=== PATIENT | male | born 1990 | race Caucasian/White ===

== ENCOUNTER 2016-11-07 23:28 | Emergency (ER) | payer BC ==
--- NOTE | 2016-11-07 23:47 | Emergency Department Record ---
History of Present Illness - General Chief Complaint: Fall Injury Stated Complaint: FALL Time Seen by Provider: 11/07/16 23:41 Source: Patient Mode of Arrival: Ambulatory Limitations: No limitations - History of Present Illness Initial Comments: 26 yo male presents to ED with a CC of right ankle and right wrist pain following a trip and fall down a flight of stairs 1 week ago. Patient reports pain with ambulation as well as extension of the wrist. Patient denies other injury on examination. MD Complaint: Fall Onset/Timin -: Week(s) Fall From: Down stairs (#) When Fall Occurred: # Days [employer] Fall Witnessed: No Place Fall Occurred: Home Loss of Consciousness: None Prolonged Down Time?: No Symptoms Prior to Fall: None Location - Extremities: Right: Forearm, Ankle Severity: Moderate Severity scale (1-10): 3 Context: Tripped/slipped Associated Symptoms: Denies - Zay Coma Scale Eye Response: (4) Open spontaneously Motor Response: (6) Obeys commands Verbal Response: (5) Oriented [place] Total: 15 - Related Data Home Medications Medication Instructions Recorded Confirmed Last Taken Hydrocodone/Acetaminophen 1 tab PO Q6H PRN 01/16/16 01/16/16 01/16/16 02:00 [Hydrocodone/Acetaminophen 5mg/325mg] Ondansetron [Zofran Odt] 4 mg PO Q6HR PRN 01/16/16 01/16/16 01/16/16 02:00 Previous Rx's Medication Instructions Recorded Amoxicillin/Potassium Clav 1 tab PO BID #19 tab 01/16/16 [Augmentin 875-125 Tablet] Ibuprofen [Motrin 600Mg] 600 mg PO Q6H #30 tablet 11/08/16 Allergies Allergy/AdvReac Type Severity Reaction Status Date / Time coconut Allergy PT UNSURE Verified 11/07/16 23:35 OF REACTION flaxseed Allergy PT UNSURE Verified 11/07/16 23:35 OF REACTION tree nut Allergy PT UNSURE Verified 01/16/16 03:56 OF REACTION Travel Screening - Travel/Exposure Within Last 30 Days Have you traveled within the last 30 days?: No - Travel/Exposure Within Last Year Have you traveled outside the [place] in the last year?: No - Additonal Travel Details Have you been exposed to anyone with a communicable illness?: No - Travel Symptoms Symptom Screening: None Review of Systems Constitutional: Denies: Chills, Fever, Malaise, Night sweats Eyes: Denies: Eye discharge, Eye pain ENT: Denies: Congestion, Dental pain Respiratory: Denies: Cough, Dyspnea Cardiovascular: Denies: Chest pain, Dyspnea on exertion Endocrine: Denies: Fatigue, Heat or cold intolerance Gastrointestinal: Denies: Abdominal pain, Nausea, Vomiting Genitourinary: Denies: Testicular pain, Testicular mass Musculoskeletal: Reports: Arthralgia. Denies: Back pain, Gout, Joint swelling Skin: Denies: Bruising, Change in color Neurological: Denies: Abnormal gait, Confusion, Headache, Seizure Psychiatric: Denies: Anxiety Hematological/Lymphatic: Denies: Anemia, Blood Clots Past Medical History - SOCIAL HISTORY Smoking Status: Former smoker Alcohol Use: Occassional Drug Use: None - RESPIRATORY Hx Respiratory Disorders: Yes Hx Asthma: Yes Hx Bronchitis: Yes - CARDIOVASCULAR Hx Cardio Disorders: No - NEURO Hx Neuro Disorders: No - GI Hx GI Disorders: No - Hx Genitourinary Disorders: No - ENDOCRINE Hx Endocrine Disorders: No - MUSCULOSKELETAL Hx Musculoskeletal Disorders: No - PSYCH Hx Psych Problems: No - HEMATOLOGY/ONCOLOGY Hx Hematology/Oncology Disorders: No Family Medical History Any Significant Family History?: No Physical Exam - General General Appearance: Alert, Oriented x3, Cooperative, No acute distress Limitations: No limitations - Head Head exam: Atraumatic, Normocephalic, Normal inspection Head exam detail: negative: Abrasion, Contusion, Yanez's sign, General tenderness, Hematoma, Laceration - Eye Eye exam: Normal appearance. negative: Conjunctival injection, Periorbital swelling, Periorbital tenderness, Scleral icterus - ENT Ear exam: negative: Auricular hematoma, Auricular trauma Nasal Exam: negative: Active bleeding, Discharge, Dried blood, Foreign body Mouth exam: negative: Drooling, Laceration, Muffled voice, Tongue elevation - Neck Neck exam: Normal inspection. negative: Meningismus, Tenderness - Respiratory Respiratory exam: Normal lung sounds bilaterally. negative: Rales, Respiratory distress, Rhonchi, Stridor - Cardiovascular Cardiovascular Exam: Regular rate, Normal rhythm, Normal heart sounds Peripheral Pulses: 3+: Radial (R), Dorsalis Pedis (R) - GI/Abdominal GI/Abdominal exam: Soft. negative: Rebound, Rigid, Tenderness - Rectal Rectal exam: Deferred - exam: Deferred - Extremities Extremities exam: Tenderness, Other (Mild TTP to the lateral right ankle, no STS present, strong DPP, achilles intact, no proximal fibula pain. Pain over the distal right wrist, FROM, strong radial pulse on examination). negative: Calf tenderness, Pedal edema - Back Back exam: Denies: CVA tenderness (R), CVA tenderness (L) - Neurological Neurological exam: Alert, Normal gait, Oriented X3 - Psychiatric Psychiatric exam: Normal affect, Normal mood - Skin Skin exam: Normal color. negative: Abrasion Type of lesion: negative: abrasion Course Vital Signs 11/07/16 23:31 Temperature 98.1 F Pulse Rate 73 Respiratory 20 Rate Blood Pressure 134/80 Pulse Ox 97 - Reevaluation(s) Reevaluation #1: 11/07/16 23:58 Right Ankle: Negative for fracture Right Wrist: Negative for fracture Patient was updated on all results and appears stable for discharge with continued symptomatic care at home. Disposition Disposition: Discharge Clinical Impression: Multiple contusions Disposition: Home, Self-Care Condition: (2) Stable Instructions: Contusion in Adults (ED) Additional Instructions: Return to ED if your symptoms worsen or if you have any concerns. Follow-up with your family doctor in 3-5 days as directed. Ibuprofen as needed for pain. Prescriptions: Ibuprofen [Motrin 600Mg] 600 mg PO Q6H #30 tablet Forms: Patient Portal Access Time of Disposition: 00:03 Quality - Quality Measures Quality Measures: N/A - Blood Pressure Screening Blood Pressure Classification: Pre-Hypertensive BP Reading Systolic Measurement: 134 Diastolic Measurement: 80 Screening for High Blood Pressure: < Pre-Hypertensive BP, F/U Documented > [ G8950] Pre-Hypertensive Follow-up Interventions: Referral to alternative/primary care provider.
--- NOTE | 2016-11-09 07:42 | RADIOLOGY REPORT ---
EXAM: RIGHT ANKLE, THREE VIEWS HISTORY: LATERAL PAIN AFTER FALLING DOWN STAIRS A FEW DAYS AGO. TECHNIQUE: Three views of the right ankle were obtained. Comparison: None. Encounter: Initial. FINDINGS: There is normal bone mineralization. No fracture, dislocation, or destructive bone lesion is seen. The ankle mortise joint is symmetric. Mild marginal spurring is noted to involve the tip of the medial malleolus. The articular relations are otherwise unremarkable. No focal soft tissue abnormality. IMPRESSION: NO ACUTE BONE NOR JOINT ABNORMALITY IDENTIFIED. [facility] [id number] [facility]
--- NOTE | 2016-11-09 07:45 | RADIOLOGY REPORT ---
EXAM: RIGHT WRIST COMPLETE HISTORY: LATERAL WRIST PAIN AFTER FALLING DOWN STAIRS A FEW DAYS AGO. TECHNIQUE: Four views of the right wrist were obtained. Comparison: None. Encounter: Initial. FINDINGS: There is normal bone mineralization. No acute fracture, dislocation , nor destructive bone lesion is seen. The articular relations are grossly maintained. The scapholunate joint space is, however, near the upper limits of normal. No focal soft tissue abnormality is seen. IMPRESSION: NO ACUTE FRACTURE NOR DISLOCATION. [facility]: [id number] [facility]
== END 2016-11-08 00:10 | disposition home or self-care (01) ==
LOC: ER 23:28
DX: S60.211A Contusion of right wrist, initial encounter (principal); S90.01XA Contusion of right ankle, initial encounter; W10.9XXA Fall (on) (from) unspecified stairs and steps, initial encounter; Y92.009 Unspecified place in unspecified non-institutional (private) residence as the place of occurrence of the external cause
CPT/HCPCS: 99283

== ENCOUNTER 2017-05-15 16:03 | Emergency (ER) | payer BC ==
[2017-05-15] MEDS ORDERED: 0.9 % SODIUM CHLORIDE 1,000 ML BAG IV ONE (17:27)
[2017-05-15] MEDS ORDERED: KETOROLAC 30 MG/ML VIAL IVP ONE (17:27)
[2017-05-15 17:50] LABS: URINE APPEARANCE CLEAR; URINE BILIRUBIN NEGATIVE (NEGATIVE); URINE BLOOD NEGATIVE (NEGATIVE); URINE COLOR YELLOW; URINE GLUCOSE (UA) NEGATIVE (NEGATIVE); URINE KETONE NEGATIVE (NEGATIVE); URINE LEUKOCYTE ESTERASE NEGATIVE (NEGATIVE); URINE NITRITE NEGATIVE (NEGATIVE); URINE PROTEIN NEGATIVE (NEGATIVE); URINE UROBILINOGEN 0.2 E.U./dL (0.20 - 1.00)
[2017-05-15 17:50] LABS: BASO % 0.2 % (0-6); EOS % 3.5 % (0-6); GRAN % 58.9 % (47-80); HEMATOCRIT 44.8 % (42.0-52.0); HEMOGLOBIN 14.8 gm/dl (14.0-18.0); LYMPH % 30.9 % (16-45); MEAN CORPUSCULAR HEMOGLOBIN 28.7 pg (27-33); MEAN PLATELET VOLUME 9.8 fl (7.4-10.4); MONO % 6.5 % (0-9); PLATELET COUNT 219 K/uL (130-400); RED BLOOD COUNT 5.15 M/uL (4.40-5.70); RED CELL DISTRIBUTION WIDTH 13.7 % (11.5-14.5); WHITE BLOOD COUNT W/O DIFF 8.2 K/uL (4.2-12.2)
[2017-05-15 17:58] LABS: BLOOD UREA NITROGEN 15 mg/dL (6-20); CREATININE 0.8 mg/dL (0.7-1.2); EST GLOMERULAR FILTRATION RATE > 60 mL/min
[2017-05-15 18:01] LABS: GLUCOSE,RANDOM 87 mg/dL (74-109)
--- NOTE | 2017-05-15 18:24 | Emergency Department Record ---
History of Present Illness - General Chief Complaint: Back Pain/Injury Stated Complaint: LOWER BACK/ABDOMINAL PAIN Time Seen by Provider: 05/15/17 17:22 Source: Patient Mode of Arrival: Ambulatory Limitations: No limitations - History of Present Illness Initial Comments: pt has had flank pain and abd pain for 2 days which is getting progressively worse. no n/v/c MD Complaint: Back pain, Other Onset/Timin -: Days(s) Similar Symptoms Previously: No Place: Home Severity scale (1-10): 4 Quality: Sharp Consistency: Constant Context: Unknown Associated Symptoms: Abdominal pain - Related Data Previous Rx's Medication Instructions Recorded Cyclobenzaprine HCl [Flexeril] 10 mg PO TID #14 tablet 05/15/17 Hydrocodone/Acetaminophen [[place] 1 tab PO Q6H PRN #7 tab 05/15/17 5mg/325mg] Ibuprofen [Motrin 600Mg] 600 mg PO Q6H #20 tablet 05/15/17 Allergies Allergy/AdvReac Type Severity Reaction Status Date / Time coconut Allergy PT UNSURE Verified 05/15/17 16:51 OF REACTION flaxseed Allergy PT UNSURE Verified 05/15/17 16:51 OF REACTION tree nut Allergy PT UNSURE Verified 05/15/17 16:51 OF REACTION Travel Screening - Travel/Exposure Within Last 30 Days Have you traveled within the last 30 days?: No - Travel/Exposure Within Last Year Have you traveled outside the [place] in the last year?: No - Additonal Travel Details Have you been exposed to anyone with a communicable illness?: No - Travel Symptoms Symptom Screening: None Review of Systems Reviewed: No additional complaints except as noted below Constitutional: Reports: As per HPI. Denies: Chills, Fever, Malaise, Night sweats, Weakness, Weight change Eyes: Reports: As per HPI. Denies: Eye discharge, Eye pain, Photophobia, Vision change ENT: Reports: As per HPI. Denies: Congestion, Dental pain, Ear pain, Epistaxis , Hearing loss, Throat pain Respiratory: Reports: As per HPI. Denies: Cough, Dyspnea, Hemoptysis, Stridor, Wheezes Cardiovascular: Reports: As per HPI. Denies: Arrhythmia, Chest pain, Dyspnea on exertion, Edema, Murmurs, Orthopnea, Palpitations, Paroxysmal nocturnal dyspnea, Rheumatic Fever, Syncope Endocrine: Reports: As per HPI. Denies: Fatigue, Heat or cold intolerance, Polydipsia, Polyuria Gastrointestinal: Reports: As per HPI. Denies: Abdominal pain, Constipation, Diarrhea, Hematemesis, Hematochezia, Melena, Nausea, Vomiting Genitourinary: Reports: As per HPI. Denies: Dysuria, Frequency, Hematuria, Incontinence, Retention, Testicular pain, Testicular mass, Urgency Musculoskeletal: Reports: As per HPI. Denies: Arthralgia, Back pain, Gout, Joint swelling, Myalgia, Neck pain Skin: Reports: As per HPI. Denies: Bruising, Change in color, Change in hair/ nails, Lesions, Pruritus, Rash Neurological: Reports: As per HPI. Denies: Abnormal gait, Confusion, Headache, Numbness, Paresthesias, Seizure, Tingling, Tremors, Vertigo, Weakness Psychiatric: Reports: As per HPI. Denies: Anxiety, Auditory hallucinations, Depression, Homicidal thoughts, Suicidal thoughts, Visual hallucinations Hematological/Lymphatic: Reports: As per HPI. Denies: Anemia, Blood Clots, Easy bleeding, Easy bruising, Swollen glands Past Medical History - SOCIAL HISTORY Smoking Status: Former smoker Alcohol Use: Rare Drug Use: None - RESPIRATORY Hx Respiratory Disorders: No - CARDIOVASCULAR Hx Cardio Disorders: No - NEURO Hx Neuro Disorders: No - GI Hx GI Disorders: No - Hx Genitourinary Disorders: No - ENDOCRINE Hx Endocrine Disorders: No - MUSCULOSKELETAL Hx Musculoskeletal Disorders: No - PSYCH Hx Psych Problems: No - HEMATOLOGY/ONCOLOGY Hx Hematology/Oncology Disorders: No Family Medical History Any Significant Family History?: No Physical Exam - General General Appearance: Alert, Oriented x3, Cooperative, Mild distress - Head Head exam: Normal inspection - Eye Eye exam: Normal appearance, PERRL, EOMI Pupils: Normal accommodation - ENT ENT exam: Normal exam, Mucous membranes moist, Normal external ear exam, Normal orophraynx Ear exam: Normal external inspection. negative: External canal tenderness Nasal Exam: Normal inspection. negative: Discharge, Sinus tenderness Mouth exam: Normal external inspection, Tongue normal Teeth exam: Normal inspection. negative: Dental caries Throat exam: Normal inspection. negative: Tonsillar erythema, Tonsillar exudate - Neck Neck exam: Normal inspection, Full ROM. negative: Tenderness - Respiratory Respiratory exam: Normal lung sounds bilaterally. negative: Respiratory distress - Cardiovascular Cardiovascular Exam: Regular rate, Normal rhythm, Normal heart sounds - GI/Abdominal GI/Abdominal exam: Soft, Normal bowel sounds, Tenderness (rlq) - Rectal Rectal exam: Deferred - exam: Deferred - Extremities Extremities exam: Normal inspection, Full ROM, Normal capillary refill. negative: Tenderness - Back Back exam: Reports: Normal inspection, Full ROM. Denies: Muscle spasm, Rash noted, Tenderness - Neurological Neurological exam: Alert, CN II-XII intact, Normal gait, Oriented X3 - Psychiatric Psychiatric exam: Normal affect, Normal mood - Skin Skin exam: Dry, Intact, Normal color, Warm Course Vital Signs 05/15/17 16:45 Temperature 98.1 F Pulse Rate 63 Respiratory 20 Rate Blood Pressure 127/75 Pulse Ox 99 - Reevaluation(s) Reevaluation #1: 05/15/17 18:46 ct neg Medical Decision Making - Lab Data Result diagrams: 05/15/17 17:40 05/15/17 17:40 Lab Results 05/15/17 05/15/17 05/15/17 Range/Units 17:40 17:40 17:45 WBC 8.2 (4.2-12.2) K/uL RBC 5.15 (4.40-5.70) M/uL Hgb 14.8 (14.0-18.0) gm/dl Hct 44.8 (42.0-52.0) % MCV 87.0 (81-97) fl MCH 28.7 (27-33) pg MCHC 33.0 (32-36) g/dl RDW 13.7 (11.5-14.5) % Plt Count 219 (130-400) K/uL MPV 9.8 (7.4-10.4) fl Gran % 58.9 (47-80) % Lymphocytes % 30.9 (16-45) % Monocytes % 6.5 (0-9) % Eosinophils % 3.5 (0-6) % Basophils % 0.2 (0-6) % Sodium 142 (136-145) mmol/L Potassium 4.0 (3.4-4.5) mmol/L Chloride 101 (98-107) mmol/L Carbon Dioxide 29.0 (22-29) mmol/L Anion Gap 12.0 (7-16) BUN 15 (6-20) mg/dL Creatinine 0.8 (0.7-1.2) mg/dL Estimated GFR > 60 mL/min Random Glucose 87 (74-109) mg/dL Calcium 9.6 (8.6-10.0) mg/dL Urine Color Yellow Urine Appearance Clear Urine pH 6.0 (5.0-8.0) Ur Specific [place] 1.015 (1.002-1.030) Urine Protein Negative (NEGATIVE) Urine Glucose (UA) Negative (NEGATIVE) Urine Ketones Negative (NEGATIVE) Urine Blood Negative (NEGATIVE) Urine Nitrite Negative (NEGATIVE) Urine Bilirubin Negative (NEGATIVE) Urine Urobilinogen 0.2 (0.20 - 1.00) E.U./dL Ur Leukocyte Esterase Negative (NEGATIVE) Disposition Disposition: Discharge Clinical Impression: Back strain Qualifiers: Encounter type: initial encounter Qualified Code(s): S39.012A - Strain of muscle, fascia and tendon of lower back, initial encounter Disposition: Home, Self-Care Condition: (1) Good Instructions: Low Back Strain (ED) Additional Instructions: follow up with family doctor. return sooner if worse. no lifting more then 5 pounds for 5 days. ice and moist heat to sore area Prescriptions: Cyclobenzaprine HCl [Flexeril] 10 mg PO TID #14 tablet Hydrocodone/Acetaminophen [[place] 5mg/325mg] 1 tab PO Q6H PRN #7 tab PRN Reason: Pain - General Ibuprofen [Motrin 600Mg] 600 mg PO Q6H #20 tablet Forms: Patient Portal Access Quality - Quality Measures Quality Measures: N/A - Blood Pressure Screening Does Patient Have Any of the Following: No Blood Pressure Classification: Pre-Hypertensive BP Reading Systolic Measurement: 127 Diastolic Measurement: 75 Screening for High Blood Pressure: < Pre-Hypertensive BP, F/U Documented > [ G8950] Pre-Hypertensive Follow-up Interventions: Follow-up with rescreen every year.
[2017-05-15] MEDS ORDERED: ORPHENADRINE CITRATE 60MG/2ML VIAL IM ONE (18:47)
[2017-05-15] MEDS ORDERED: HYDROMORPHONE HCL 1 MG/ML SYRINGE IVP ONE (18:47)
[2017-05-15] MEDS ORDERED: ONDANSETRON HCL IV 4 MG/2 ML VIAL IVP ONE (18:47)
--- NOTE | 2017-05-16 13:08 | CT SCAN REPORT ---
EXAM: CT OF THE ABDOMEN AND PELVIS WITHOUT CONTRAST HISTORY: LOWER BACK AND LOWER ABDOMINAL PAIN FOR TWO DAYS. RIGHT LOWER QUADRANT ABDOMINAL PAIN. TECHNIQUE: Thin collimation helical CT examination of the abdomen and pelvis was performed without intravenous contrast. Lack of oral and IV contrast utilization limits evaluation of the bowel and solid viscera respectively. Comparison: CT of the abdomen and pelvis with contrast dated 01/16/16. FINDINGS: The lung bases are clear. No pleural or pericardial effusion. The heart is not enlarged. The liver, spleen, pancreas, and adrenal glands are normal in appearance. 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 The kidneys are otherwise normal in appearance with no hydronephrosis. The gallbladder is unremarkable and no biliary ductal dilatation is seen. No intraabdominal nor retroperitoneal lymphadenopathy identified. The vasculature to the extent visualized is normal in appearance. No pelvic mass, lymphadenopathy, or free pelvic fluid is seen. No focal urinary bladder abnormality is identified. Its evaluation is somewhat limited, however, due to lack of distention. Evaluation of the bowel is limited by lack of oral contrast utilization. No definite bowel dilatation nor bowel wall thickening is seen though evaluation is limited by lack of oral contrast utilization. The appendix is visualized and normal in appearance. The intraabdominal and retroperitoneal fat appear clear. A tiny fat filled umbilical hernia is present. No lytic or blastic bone lesion is seen. IMPRESSION: 1. NO CT EVIDENCE OF AN ACUTE INTRAABDOMINAL NOR INTRAPELVIC PROCESS. 2. NORMAL APPENDIX. 3. REDEMONSTRATION OF HORSESHOE KIDNEY. [facility]: [id number] [facility]
== END 2017-05-15 19:33 | disposition home or self-care (01) ==
LOC: ER 16:03
DX: S39.012A Strain of muscle, fascia and tendon of lower back, initial encounter (principal); R10.31 Right lower quadrant pain; X50.3XXA Overexertion from repetitive movements, initial encounter; Y92.009 Unspecified place in unspecified non-institutional (private) residence as the place of occurrence of the external cause
CPT/HCPCS: 99284 ×2; 96374; 96372; 96375; 85025; 80048; 81003; 74176; J1885; J2405; J1170; J2360; J7030